=== PATIENT | male | born 1980 | race Caucasian/White ===

== ENCOUNTER 2019-11-12 18:09 | Emergency (ER) | payer BC ==
[2019-11-12 18:26] VITALS: BP 114/74; PULSE 59; RESP 18; TEMP 98.6
[2019-11-12] MEDS ORDERED: PROPARACAINE 0.5% OPHTH DROPS 15 ML BTL BOTH EYES STA (18:29)
[2019-11-12] MEDS ORDERED: FLUORESCEIN STRIPS 1 MG STRIP BOTH EYES ONE (18:29)
[2019-11-12] MEDS ORDERED: OFLOXACIN 0.3% OPHTH DROPS 5 ML BOTTLE LEFT EYE STA (19:04)
--- NOTE | 2019-11-12 19:05 | ED ---
Eye Problem HPI - General Chief complaint: Eye Problems Stated complaint: FB in eye Time Seen by Provider: 11/12/19 18:29 Source: patient, RN notes reviewed, old records reviewed Mode of arrival: ambulatory Limitations: no limitations - History of Present Illness Initial comments: Patient is a 39-year-old male presents emergency room today for evaluation with chief complaint of foreign body within the left eye. 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 Patient states that he has mutation and but then decided go to the beach and flush his eye with moraes water. Patient states that he does not wear glasses or contacts. - Related Data Previous Rx's Medication Instructions Recorded Ofloxacin 0.3% Ophth Soln [Ocuflox 1 drops LEFT EYE QID #1 bottle 11/12/19 Ophth Soln] Allergies Allergy/AdvReac Type Severity Reaction Status Date / Time Penicillins Allergy Unknown Verified 11/12/19 21:09 Review of Systems ROS Statement: Those systems with pertinent positive or pertinent negative responses have been documented in the HPI. ROS Other: All systems not noted in ROS Statement are negative. Past Medical History Past Medical History: No Reported History History of Any Multi-Drug Resistant Organisms: None Reported Past Surgical History: Orthopedic Surgery Past Psychological History: Anxiety Smoking Status: Never smoker Past Alcohol Use History: None Reported Past Drug Use History: None Reported General Exam - General Exam Comments Initial Comments: 39-year-old male. Alert and oriented. No distress. Limitations: no limitations General appearance: alert, in no apparent distress Head exam: Present: atraumatic, normocephalic, normal inspection Eye exam: Present: normal appearance, PERRL, EOMI. Absent: scleral icterus, conjunctival injection, periorbital swelling ENT exam: Present: normal exam, mucous membranes moist, other (Patient's course in exam shows a small corneal abrasion at 6 o'clock position. No retained foreign body within the cornea. ) Neck exam: Present: normal inspection. Absent: tenderness, meningismus, lymphadenopathy Respiratory exam: Present: normal lung sounds bilaterally. Absent: respiratory distress, wheezes, rales, rhonchi, stridor Cardiovascular Exam: Present: regular rate, normal rhythm, normal heart sounds. Absent: systolic murmur, diastolic murmur, rubs, gallop, clicks GI/Abdominal exam: Present: soft, normal bowel sounds. Absent: distended, tenderness, guarding, rebound, rigid Extremities exam: Present: normal inspection, full ROM, normal capillary refill. Absent: tenderness, pedal edema, joint swelling, calf tenderness Back exam: Present: normal inspection Neurological exam: Present: alert, oriented X3, CN II-XII intact Psychiatric exam: Present: normal affect, normal mood Skin exam: Present: warm, dry, intact, normal color. Absent: rash Course Vital Signs 11/12/19 18:22 Temperature 98.6 F Pulse Rate 59 L Respiratory 18 Rate Blood Pressure 114/74 O2 Sat by Pulse 98 Oximetry Medical Decision Making - Medical Decision Making 39-year-old male transferred from today with chief complaint of left eye pain and irritation after possible foreign body. 4 scene eye exam is evidence of abrasion at 6 o'clock position but no retained foreign body. Patient's visual acuity is 20/50 and left eye 20/25 in the right eye. Patient's intraocular pressure 17 on the right and 16 on the left. Patient at this time will be prescribed antibiotic drops. 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 All questions were answered. Disposition Clinical Impression: Left eye pain, Foreign body of left eye Disposition: HOME SELF-CARE Condition: Good Instructions (If sedation given, give patient instructions): Corneal Abrasion ( ED), Eye Foreign Body (ED) Additional Instructions: Patient was up with the antibiotic drop within the eye as discussed in 4 hours. Following up with ophthalmology if symptoms continue to persist. Return to emergency department if any alarming signs or symptoms occur. Prescriptions: Ofloxacin 0.3% Ophth Soln [Ocuflox Ophth Soln] 1 drops LEFT EYE QID #1 bottle Is patient prescribed a controlled substance at d/c from ED?: No Referrals: Dangelo Mina DO [Primary Care Provider] - 1-2 days Time of Disposition: 19:23
== END 2019-11-12 19:30 | disposition home or self-care (01) ==
LOC: EC 18:09
DX: T15.02XA Foreign body in cornea, left eye, initial encounter (principal); Z88.0 Allergy status to penicillin; W31.1XXA Contact with metalworking machines, initial encounter
CPT/HCPCS: 99283

== ENCOUNTER 2019-11-12 21:02 | Emergency (ER) | payer BC ==
[2019-11-12 21:09] VITALS: BP 117/82; PULSE 55; RESP 18; TEMP 98
[2019-11-12] MEDS ORDERED: PROPARACAINE 0.5% OPHTH DROPS 15 ML BTL LEFT EYE STA (21:17)
[2019-11-12] MEDS ORDERED: PROPARACAINE 0.5% OPHTH DROPS 15 ML BTL RIGHT EYE STA (21:17)
[2019-11-12] MEDS ORDERED: FLUORESCEIN STRIPS 1 MG STRIP LEFT EYE ONE (22:17)
[2019-11-12] MEDS ORDERED: Acetaminophen-Codeine 300-30mg TAB PO STA (22:31)
--- NOTE | 2019-11-12 22:33 | ED ---
General Adult HPI - General Chief complaint: ENT Stated complaint: Revisit FB in Eye Time Seen by Provider: 11/12/19 21:16 Source: patient, RN notes reviewed, old records reviewed Mode of arrival: ambulatory Limitations: no limitations - History of Present Illness Initial comments: 39-year-old male patient proceeded chief complaint of left eye irritation. Patient reports that he was initially seen here earlier today because he was sitting in his car after work still wearing his work hat. He felt something fall into his eye. He reports that his eyes are very irritating to the foreign body sensation ever since. He states he flushed his eyes with water and has been rubbing them a lot. 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 Patient was initially seen here and had exam diagnosed with a corneal abrasion. Patient reports that when he got home and the eyedrops wore off he began experiencing discomfort and causes started having a mild headache in his left temporal region states it feels like a pressure. He is denying any other acute complaints. Systemic: Pt denies fatigue, fever/chills, rash. Pt denies weakness, night swea ts, weight loss. Neuro: Pt denies syncope or pre-syncope. HEENT: Pt denies ocular discharge or irritation, otalgia, rhinorrhea, pharyngitis or notable lymphadenopathy. Cardiopulmonary: Pt denies chest pain, SOB, heart palpitations, dyspnea on exertion. Abdominal/GI: Pt denies abdominal pain, n/v/d. : Pt denies dysuria, burning w/ urination, frequency/urgency. Denies new onset urinary or bowel incontinence. MSK: Pt denies myalgia, loss of strength or function in extremities. Neuro: Pt denies new onset weakness, paresthesias. - Related Data Previous Rx's Medication Instructions Recorded Ofloxacin 0.3% Ophth Soln [Ocuflox 1 drops LEFT EYE QID #1 bottle 11/12/19 Ophth Soln] Allergies Allergy/AdvReac Type Severity Reaction Status Date / Time Penicillins Allergy Unknown Verified 11/12/19 21:09 Review of Systems ROS Statement: Those systems with pertinent positive or pertinent negative responses have been documented in the HPI. ROS Other: All systems not noted in ROS Statement are negative. Past Medical History Past Medical History: No Reported History History of Any Multi-Drug Resistant Organisms: None Reported Past Surgical History: Orthopedic Surgery Past Psychological History: Anxiety Smoking Status: Never smoker Past Alcohol Use History: None Reported Past Drug Use History: None Reported General Exam - General Exam Comments Initial Comments: Constitutional: NAD, AOX3, Pt has pleasant affect. HEENT: NC/AT, trachea midline, neck supple, no lymphadenopathy. External ears appear normal, without discharge. Mucous membranes moist. Eyes PERRLA, EOM intact. Intraocular pressure average 14 and 15. Mild injection of the left eye. Small corneal abrasion noted at 6:00. No foreign bodies noted. There is no scleral icterus. No pallor noted. Cardiopulmonary: RRR, no murmurs, rubs or gallops, no JVD noted. Lungs CTAB in anterior and posterior lockhart. No peripheral edema. Neuro: CN II-XII intact. No nuchal rigidity. No raccon eyes, no torres sign, no hemotympanum. No cervical spinal tenderness. MSK: Full active ROM in upper and lower extremities, 5/5 stregnth. Limitations: no limitations Course Vital Signs 11/12/19 21:06 Temperature 98.0 F Pulse Rate 55 L Respiratory 18 Rate Blood Pressure 117/82 O2 Sat by Pulse 99 Oximetry Medical Decision Making - Medical Decision Making 39-year-old male patient presents to ED for evaluation of left eye pain and h eadache. Patient will signs are stable, afebrile. Patient declining any tetanus update. Physical exam displayed intact neurologic exam and a small corneal abrasion. Patient initiated on ofloxacin eyedrops earlier and will follow up with payroll officer tomorrow. Neurologic exam is intact. Patient is not a contact lens wearer. He'll return to ER if condition worsens. Case discussed with Dr. Mcclain. Disposition Clinical Impression: Headache, Corneal abrasion Disposition: HOME SELF-CARE Condition: Stable Instructions (If sedation given, give patient instructions): Corneal Abrasion (ED), Acute Headache (ED) Additional Instructions: follow-up with primary care provider and payroll officer tomorrow. Continue to use eyedrops. Return to ER condition worsens. Is patient prescribed a controlled substance at d/c from ED?: No Referrals: Dangelo Mina DO [Primary Care Provider] - 1-2 days Efraín Rayo MD [STAFF PHYSICIAN] - 1-2 days
[2019-11-12] MEDS ORDERED: ONDANSETRON ODT 4 MG TAB PO STA (22:49)
== END 2019-11-12 23:04 | disposition home or self-care (01) ==
LOC: EC 21:02
DX: S05.02XA Injury of conjunctiva and corneal abrasion without foreign body, left eye, initial encounter (principal); R51 Headache; Z88.0 Allergy status to penicillin; X58.XXXA Exposure to other specified factors, initial encounter
CPT/HCPCS: 99283

== ENCOUNTER 2020-06-21 10:38 | Emergency (ER) | payer BC ==
[2020-06-21 10:46] VITALS: PULSE 68; TEMP 98.1
--- NOTE | 2020-06-21 11:38 | ED ---
General Adult HPI - General Chief complaint: Extremity Injury, Lower Stated complaint: rt knee injury Time Seen by Provider: 06/21/20 10:53 Source: patient, RN notes reviewed Mode of arrival: wheelchair Limitations: physical limitation - History of Present Illness Initial comments: This a 40-year-old male presents emergency department to complaint of right knee pain. Patient states his playing basketball states he twisted his knee. Patient states he has medial knee pain. He does admit that he had injury at age 15 which is for sinus surgery for. He states he fractured some portion of his knee. Patient denies any hip or ankle pain. Patient states it feels like it wants to give all unable to fully straighten secondary to pain. - Related Data Previous Rx's Medication Instructions Recorded Ofloxacin 0.3% Ophth Soln [Ocuflox 1 drops LEFT EYE QID #1 bottle 11/12/19 Ophth Soln] Ibuprofen [Motrin] 600 mg PO Q8HR PRN #20 tab 06/21/20 Allergies Allergy/AdvReac Type Severity Reaction Status Date / Time Penicillins Allergy Unknown Verified 06/21/20 10:47 Review of Systems ROS Statement: Those systems with pertinent positive or pertinent negative responses have been documented in the HPI. ROS Other: All systems not noted in ROS Statement are negative. Past Medical History Past Medical History: No Reported History History of Any Multi-Drug Resistant Organisms: None Reported Past Surgical History: Orthopedic Surgery Past Psychological History: Anxiety, Depression Smoking Status: Current every day smoker Past Alcohol Use History: Occasional Past Drug Use History: Marijuana General Exam Limitations: physical limitation General appearance: alert, in no apparent distress Head exam: Present: atraumatic, normocephalic, normal inspection Respiratory exam: Present: normal lung sounds bilaterally. Absent: respiratory distress, wheezes, rales, rhonchi, stridor Cardiovascular Exam: Present: regular rate, normal rhythm, normal heart sounds. Absent: systolic murmur, diastolic murmur, rubs, gallop, clicks Extremities exam: Present: other (Pain with range of motion the right knee, neurovascular intact no tenderness about below his medial knee tenderness there is moderate fluid noted, slight laxity.) Neurological exam: Present: reflexes normal. Absent: motor sensory deficit Skin exam: Present: warm, dry, intact, normal color. Absent: rash Course Vital Signs 06/21/20 10:44 Temperature 98.1 F Pulse Rate 68 Respiratory 18 Rate Blood Pressure 109/74 O2 Sat by Pulse 100 Oximetry Medical Decision Making - Medical Decision Making X-ray is unremarkable. Patient has small joint effusion noted U fracture. There is concern for possible ligamentous injury. Patient will be discharged and follow-up with orthopedics. Disposition Clinical Impression: Right knee sprain Disposition: HOME SELF-CARE Condition: Stable Instructions (If sedation given, give patient instructions): Knee Sprain (ED) Additional Instructions: Please return to the Emergency Department if symptoms worsen or any other concerns. Prescriptions: Ibuprofen [Motrin] 600 mg PO Q8HR PRN #20 tab PRN Reason: Pain Is patient prescribed a controlled substance at d/c from ED?: No Referrals: Dangelo Mina DO [Primary Care Provider] - 1-2 days Time of Disposition: 12:02
--- NOTE | 2020-06-21 11:50 | XR ---
EXAMINATION TYPE: XR knee complete RT DATE OF EXAM: 06/21/2020 COMPARISON: NONE HISTORY: 40-year-old male pain after basketball injury. TECHNIQUE: 3 views FINDINGS: Small knee joint effusion. Extensor mechanism appears intact. Minimal degenerative spurring in the patellofemoral compartment. No acute fracture, subluxation, dislocation. IMPRESSION: 1. No acute osseous abnormality seen. 2. However, there is a small knee joint effusion. If concern for internal derangement, MRI can be per formed.
[2020-06-21] MEDS ORDERED: ACET/COD 300 MG/30 MG STARTER PACK 6 TAB BTL PO STA (12:03)
[2020-06-21 12:39] VITALS: BP 116/64; RESP 20
== END 2020-06-21 12:40 | disposition home or self-care (01) ==
LOC: EC 10:38
DX: S83.91XA Sprain of unspecified site of right knee, initial encounter (principal); F41.9 Anxiety disorder, unspecified; F32.9 Major depressive disorder, single episode, unspecified; F17.200 Nicotine dependence, unspecified, uncomplicated; Z88.0 Allergy status to penicillin; X50.1XXA Overexertion from prolonged static or awkward postures, initial encounter; Y93.67 Activity, basketball
CPT/HCPCS: 99283

== ENCOUNTER → 2020-06-26 | Outpatient (CLI) | payer BC ==
--- NOTE | 2020-06-26 13:39 | CT ---
EXAMINATION TYPE: CT knee RT wo con DATE OF EXAM: 06/26/2020 COMPARISON: 06/21/2020 HISTORY: Rolled Rt knee, pain CT DLP: 469.2 mGycm Automated exposure control for dose reduction was used. Contrast: None Technique: Axial images 3 mm thick sections. Reconstructed images in the coronal and sagittal plane. Three-D reconstructed images performed on a separate computer by the technologist are presented FINDINGS: No acute fractures are evident. There is a small joint effusion. Rayo's cyst is present. Mild narrowing of the medial lateral compartment joint space is present. Subchondral cyst formation a nd posterior medial tibial plateau is present. IMPRESSION: 1. MILD DEGENERATIVE JOINT CHANGES GREATEST IN THE POSTERIOR MEDIAL TIBIAL PLATEAU. 2. SMALL JOINT EFFUSION. 3. POPLITEAL CYST
== END | disposition home or self-care (01) ==
LOC: RADCTMAIN 06:43
PROVIDERS: ATTEND Orthopaedic Surgery
DX: M71.21 Synovial cyst of popliteal space [Baker], right knee (principal); M17.11 Unilateral primary osteoarthritis, right knee; M25.461 Effusion, right knee